=== PATIENT | male | born 1940 | race Caucasian/White ===

== ENCOUNTER 2016-08-16 08:33 | Outpatient (CLI) | payer MEDICARE, OTHER ==
[~2016-08-16] VITALS: Ht 175.3 cm; Wt 77.7 kg
[2016-08-16] MEDS ORDERED: GLUCOPHAGE500 MG/TAB PO (09:05)
[2016-08-16] MEDS ORDERED: ZOCOR 40MG40 MG PO (09:05)
[2016-08-16] MEDS ORDERED: PROSCAR 5MG5 MG PO (09:06)
[2016-08-16] MEDS ORDERED: CORDARONE200 MG/TAB PO (09:06)
[2016-08-16] MEDS ORDERED: FLOMAX 0.40.4 MG/CAP PO (09:06)
[2016-08-16 09:07] VITALS: BP 105/68; PULSE 51; TEMP 97.7
[2016-08-16] MEDS ORDERED: CEPHALEXIN500 M1 PO (11:29)
== END 2016-08-16 12:32 | disposition home or self-care (01) ==
LOC: EUO 08:33 → COL.CAR 08:45 → EUO 12:32
DX: I48.0 Paroxysmal atrial fibrillation (principal); I47.2 Ventricular tachycardia; R00.1 Bradycardia, unspecified; Z87.891 Personal history of nicotine dependence; Z80.9 Family history of malignant neoplasm, unspecified; Z82.49 Family history of ischemic heart disease and other diseases of the circulatory system
CPT/HCPCS: 27124; C1764

== ENCOUNTER 2018-09-28 08:20 | Day surgery (SDC) | payer MEDICARE, OTHER ==
[2018-09-28] VITALS (10 sets, daily range): BP systolic 103–139; BP diastolic 58–86; PULSE 52–76; TEMP 97.4–98.4
[~2018-09-28] VITALS: Ht 175.3 cm; Wt 78.2 kg
[~2018-09-28 08:20] MED LIST: CEPHALEXIN500 M1 PO; CORDARONE200 MG/TAB PO; FLOMAX 0.40.4 MG/CAP PO; GLUCOPHAGE500 MG/TAB PO; PROSCAR 5MG5 MG PO; ZOCOR 40MG40 MG PO
[2018-09-28] MEDS ORDERED: ASPI325T6 PO (08:31)
[2018-09-28] MEDS ORDERED: XALATAN EYE DROPS OU (08:32)
[2018-09-28 09:07] LABS: HEMATOCRIT 41.5 % (42.0-52.0); HEMOGLOBIN 14.3 g/dl (13.5-18.0); MEAN CELL VOLUME 92 fl (80.0-100.0); MEAN CORPUSCULAR HEMOGLOBIN 32 pg (27.0-31.0); MEAN CORPUSCULAR HGB CONC 35 g/dl (33.0-37.0); MEAN PLATELET VOLUME 9.3 fl (7.4-10.4); PLATELET COUNT 206 K/mm3 (130-400); RED BLOOD COUNT 4.51 M/mm3 (4.20-5.60); REDCELL DISTRIBUTION WIDTH-CV 13.3 % (11.5-14.5)
[2018-09-28 09:10] LABS: PROTHROMBIN TIME 11.6 SECONDS (9.7-12.8)
[2018-09-28 09:14] LABS: CALCIUM 9.3 mg/dL (8.4-10.2); CREATININE, serum 1.14 (0.66-1.25); POTASSIUM 4.3 mmol/L (3.4-5.0)
--- NOTE | 2018-09-28 09:14 | NUR ---
arrived ambulatory at 0830 and into room 12, changed into gown and prepped for procedure, lab drawn, IV started, cardiopulmonary in and EKG completed, Dr Russell in to see patient and vascular lab now in to complete echo, heart rate strong and regular, lungs CTA, bowel sounds present, abdomen soft and non distended, skin warm and dry and color pink, peirpheral pulses present in 4 extremities, denies needs
--- NOTE | 2018-09-28 10:50 | NUR ---
ALL MEDICATIONS GIVEN WITH VORB FROM MD. SEE MERGE FOR ALL MEDICATION ADMIN TIMES. SEE MERGE FOR ALL RASS ASSESSMENTS DURING AND AFTER PROCEDURE. ANCEF GIVEN PRIOR TO PROCEDURE. CALLED MD TO VERIFY 1GM ANCEF TO BE GIVEN.
--- NOTE | 2018-09-28 12:25 | NUR ---
PT ADMITTED TO FLOOR AT THIS TIME. PT DENIES PAIN, ICE PACK APPLIED TO PT SHOULDER/ CHEST AREA. VITALS BEING OBTAINED PER POST OP ROUTINE. INFORMED PT AND ABOUT POST OP ROUTINE. NO QUESTIONS VOICED AT THIS TIME.
--- NOTE | 2018-09-28 19:00 | NUR ---
PT HAD UNEVENTFUL AFTERNOON. POST OP VITALS REMINED STABLE. NO C/O PAIN. ICE PACK INTERMINTANTLY TO CHEST. PT INT'D DUE TO EATING AND DRINKING WELL. THIS NURSE ASSISTED PT TO BATHROOM FIRST TIME, PT HAD NO ISSUES AMBULATING. HOB @ 30 DEGREES. INSISION SITE C,D,I. NO ISSUES OR CONCERNS VOICED. FAMILY IN AND OUT TO VISIT THIS SHIFT.
--- NOTE | 2018-09-28 21:40 | NUR ---
PT RESTING IN BED A+OX4. REPORTS SLIGHT ACHING IN THE LEFT CHEST STIE- PRN TYLENOL GIVEN. LUNGS CLEAR. X4. TELE ON. BOWEL SOUNDS HEARD THROUGHOUT. NO EDEMA NOTED. PACEMAKER AND LOOP RECORDER REMOVAL SITES ARE DCI. IV TO THE LEFT FA FLUSHES WELLM NO REDNESS, NO SWELLING. NO SOA. NO DIZZINESS. SKIN INTACT. NO NEEDS AT THIS TIME. CALL LIGHT IN REACH.
[2018-09-29 03:29] VITALS: BP 109/67; PULSE 62; TEMP 97.5
--- NOTE | 2018-09-29 04:51 | NUR ---
PT HAD AN UNEVENTFUL NIGHT. PACEMAKER SITE AND LOOP RECORDER REMOVAL SITE DCI. MINIMAL PAIN.- GIVEN PRN TYLENOL NEEDED. IV FLUSHES WELL, NO REDNESS, NO SWELLING. TELE ON. LUNGS CLEAR X4. BOWEL SOUNDS HEARD THROUGOUT. VSS. NO NEEDS AT THIS TIME. CALL IGHT IN REACH
--- NOTE | 2018-09-29 06:46 | NUR ---
REPORT GIVEN TO PHILLIP MONTELONGO
[2018-09-29 09:07] VITALS: BP 94/55; PULSE 62; TEMP 98.2
--- NOTE | 2018-09-29 11:00 | NUR ---
PT HAD UNEVENTFUL MORNING. VOICED THAT HE WAS READY FOR DISCHARGE, AWAITING DR ZELAYA TO COME IN TO SEE PATIENT STILL. NO C/O PAIN THIS SHIFT. NO ISSUES OR CONCERNS VOICED.
[2018-09-29 11:08] LABS: BASO % 0.3 % (0.0-2.0); EOS # 0.1 (0.0-0.7); EOS % 1.3 % (0-4.0); GRAN # 3.8 (1.4-6.5); GRAN % 60.9 % (42.2-75.2); HEMATOCRIT 43.4 % (42.0-52.0); HEMOGLOBIN 14.8 g/dl (13.5-18.0); LYMPH # 1.9 (1.2-3.4); LYMPH % 29.9 % (20.0-51.0); MEAN CELL VOLUME 93 fl (80.0-100.0); MEAN CORPUSCULAR HEMOGLOBIN 32 pg (27.0-31.0); MEAN CORPUSCULAR HGB CONC 34 g/dl (33.0-37.0); MEAN PLATELET VOLUME 9.4 fl (7.4-10.4); MONO # 0.5 (0.1-0.6); MONO % 7.4 % (1.7-9.3); PLATELET COUNT 206 K/mm3 (130-400); RED BLOOD COUNT 4.66 M/mm3 (4.20-5.60); REDCELL DISTRIBUTION WIDTH-CV 13.5 % (11.5-14.5)
[2018-09-29 11:17] LABS: CALCIUM 8.9 mg/dL (8.4-10.2); CREATININE, serum 0.98 (0.66-1.25); POTASSIUM 3.9 mmol/L (3.4-5.0)
--- NOTE | 2018-09-29 12:04 | NUR ---
Initial visit; Patient and his thanked [facility] for looking in on him and offering spiritual care and God's blessings.
[2018-09-29] MEDS ORDERED: CEPHALEXIN500 M1 PO (12:06)
[2018-09-29 12:28] VITALS: BP 111/57; PULSE 60; TEMP 97.7
--- NOTE | 2018-09-29 14:13 | NUR ---
ROBERT met with the patient and patient's , Kat, to discuss discharge plan. The patient lives in [place] with his . He reports independence with ADLs and does not have any DME. The patient's PCP is Dr. Jono Mccain and he receives his medications from the [facility]. He reports no difficulties obtaining his meds. The patient is to discharge back home with his today, 09/29. No additional needs at this time.
--- NOTE | 2018-09-29 14:20 | NUR ---
PT IV AND TELE REMOVED. DISCHARGE PAPERWORK AND EDUCATION COMPLETED. NO QUESTIONS VOICED AT THIS TIME.
--- NOTE | 2018-09-29 14:30 | NUR ---
PT ESCORTED [facility]ACILITY WITH THIS NURSE AND . PT REMAINS WEARING SLING.
== END 2018-09-29 14:30 | disposition home or self-care (01) ==
LOC: COL.CAR 08:20 → MEDICAL 12:40 → COL.CAR 09-29 14:30
PROVIDERS: Internal Medicine Cardiovascular Disease; Nurse Practitioner
DX: I49.5 Sick sinus syndrome (principal); I08.1 Rheumatic disorders of both mitral and tricuspid valves; I47.2 Ventricular tachycardia; E78.5 Hyperlipidemia, unspecified; E11.9 Type 2 diabetes mellitus without complications; I48.0 Paroxysmal atrial fibrillation; R55 Syncope and collapse; Z79.82 Long term (current) use of aspirin; Z79.84 Long term (current) use of oral hypoglycemic drugs; Z87.891 Personal history of nicotine dependence; Z80.9 Family history of malignant neoplasm, unspecified; Z82.49 Family history of ischemic heart disease and other diseases of the circulatory system
CPT/HCPCS: OP; C1769; C1785; C1894; C1898; J0690; J2250; J3010; J7030

== ENCOUNTER → 2020-03-13 | Outpatient (CLI) | payer MEDICARE, OTHER ==
[~2020-03-13] MED LIST changes: +ASPI325T6 PO; +XALATAN EYE DROPS OU
== END ==
LOC: COL.RAD 12:53
DX: Z01.812 Encounter for preprocedural laboratory examination (principal); G31.9 Degenerative disease of nervous system, unspecified; I67.82 Cerebral ischemia
CPT/HCPCS: Q9967